=== PATIENT | male | born 2000 | race Caucasian/White ===

== ENCOUNTER 2024-09-23 11:51 | Outpatient (AMB) | payer OTHER, SELFPAY ==
[2024-09-23 12:05] VITALS: BP 112/62; PULSE 68; TEMP 36.7; O2SAT 99
--- NOTE | 2024-09-23 12:05 | AM.OFFWIN_ITS ---
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 He has h/o well controlled Asthma. [facility] Social History Patient Tobacco Use Status: Never used Tobacco Review of Systems Const All systems reviewed & are unremarkable except as noted in HPI and below Physical Exam Vital Signs: Last Vital Signs Temp 98.1 F 09/23/24 12:05 Pulse 68 09/23/24 12:05 BP 112/62 09/23/24 12:05 Pulse Ox 99 09/23/24 12:05 Const General: cooperative and no acute distress Nutritional Appearance: thin Orientation/consciousness: patient oriented x3 HEENT Head: Yes normocephalic Ears: external ears normal and TM's normal bilaterally General nose exam: Abnormal mucous membranes and turbinates present erythematous and Nasal discharge present Face and sinus: Yes sinuses nontender Mouth: tongue normal and moist mucous membranes Throat: Yes uvula midline Resp Effort & Inspection: normal respiratory effort, able to speak in complete sentences and Actively coughing Auscultation: no crackles, no rales, rhonchi and wheezes Cardio Heart sounds: S1 normal heart sound present and S2 normal heart sound present Neuro General: patient oriented x3 Office Procedures Nebulizer Treatment Nebulizer Treatment 16457-Cnzawwttz/MDI RX initial, or Nebulizer Subsequent Treatment Office Meds ipratropium 0.5 mg-albuterol 3 mg (2.5 mg base)/3 mL nebulization soln Performing Provider: Lisandra Feliz NP Performing Location: [facility] Administered by: Lisandra Feliz NP on 09/23/24 12:39 Dose Route Admin Location Dispensed Lot Number Expiration Date [facility] Die [employer]ger 3 mL inhalation 3 mL 06/08/25 [id number] MYLAN Assessment & Plan Assessment & Plan (1) Acute respiratory disease: Code(s): J06.9 - Acute upper respiratory infection, unspecified Plan: Ordered Duo Neb Tx Ordered SARs Ordered Abx and Prednisone. (2) Asthma exacerbation: Code(s): J45.901 - Unspecified asthma with (acute) exacerbation Qualifiers: Asthma persistence: persistent Asthma severity: moderate Qualified Code(s): J45.41 - Moderate persistent asthma with (acute) exacerbation Plan: Ordered Duo Neb Tx Ordered SARs Ordered Abx and Prednisone. Orders: Orders SARS-CoV2/FLU/RSV Today J06.9 - Acute upper respiratory infection, unspecified AMB Nebulizer Treatment Today J45.41 - Moderate persistent asthma with (acute) exacerbation Medications: New prednisone 50 mg PO DAILY 5 tabs 0RF J06.9 - Acute upper respiratory infection, unspecified, J45.41 - Moderate persistent asthma with (acute) ex acerbation albuterol sulfate 90 mcg/actuation 2 puffs inhalation Q4-6H PRN 6.7 grams 0RF shortness of breath or wheezing J06.9 - Acute upper respiratory infection, unspecified, J45.41 - Moderate persistent asthma with (acute) exacerbation fluticasone propion-salmeterol 115-21 mcg/actuation (Advair HFA) 2 puffs inhalation BID 12 grams 1RF J45.41 - Moderate persistent asthma with (acute) exacerbation albuterol sulfate 0.63 mg (3 mL) inhalation Q4-6H PRN 90 mL 0RF shortness of breath or wheezing J45.41 - Moderate persistent asthma with (acute) exacerbation doxycycline hyclate 100 mg PO BID 10 days 20 caps 0RF J06.9 - Acute upper respiratory infection, unspecified, J45.41 - Moderate persistent asthma with (acute) exacerbation Coding Level of Care Code Est Pt Level 4 (07270) Diagnoses Acute respiratory disease J06.9 Moderate persistent asthma with exacerbation J45.41 Asthma persistence: persistent Asthma severity: moderate CPT Codes Nebulizer Treatment - Nebulizer Treatment, initial or subsequent: 23871- Nebulizer/MDI RX initial, or Nebulizer Subsequent Treatment ([id number]) Time Spent (min) 20
== END 2024-09-23 13:10 | disposition home or self-care (01) ==
PROVIDERS: PCP Nurse Practitioner Family; Visit Provider Nurse Practitioner Family
DX: J06.9 Acute upper respiratory infection, unspecified (principal); J45.41 Moderate persistent asthma with (acute) exacerbation

== ENCOUNTER 2024-09-23 11:51 | Outpatient (REF) | payer OTHER, SELFPAY ==
[2024-09-23 15:30] LABS: Influenza A PCR NEGATIVE (Negative); Influenza B PCR NEGATIVE (Negative); Resp Syncy Virus RNA Qual PCR NEGATIVE (Negative); SARS COV2 PCR INHOUSE NEGATIVE (Negative)
== END 2024-09-23 11:52 | disposition home or self-care (01) ==
LOC: HO.LAB 11:51
PROVIDERS: PCP Nurse Practitioner Family; Visit Provider Nurse Practitioner Family
DX: J06.9 Acute upper respiratory infection, unspecified (principal); J45.41 Moderate persistent asthma with (acute) exacerbation
CPT/HCPCS: 0241U; 94640

== ENCOUNTER 2025-06-07 12:27 | Outpatient (AMB) | payer OTHER, SELFPAY ==
[2025-06-07 12:32] VITALS: BP 122/68; PULSE 64; RESP 16; TEMP 36.7; O2SAT 97; BMI 24.0
--- NOTE | 2025-06-07 12:32 | A.OFFPC_ITS ---
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 Allergies nut - unspecified Allergy (Intermediate, Verified 06/07/25 13:00) Angioedema amoxicillin Allergy (Mild, Verified 06/07/25 12:53) Rash Medication List - Last Reconciled 06/07/25 by Dlyan Cruz, CLOTH DES[employer]ING RANGE OPERATOR CHIEF- albuterol sulfate 90 mcg/actuation 2 puffs inhalation Q4-6H PRN albuterol sulfate 0.63 mg (3 mL) inhalation Q4-6H PRN fluticasone furoate-vilanterol 100-25 mcg/dose (Breo Ellipta) 1 inh inhalation DAILY risankizumab-rzaa (Skyrizi) mg subcut Tobacco use date assessed: 06/07/25 Dental Screening Dental Screen Date: 06/07/25 Did you have a dental visit in the last 12 months?: Yes Did you have a dental problem in the last 6 months where you did not have access to dental care?: No Was dental information given to patient?: Patient has dentist 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 He has a history of Crohn's Disease and is currently on Skyrizi, with regular follow-ups with a automatic steel tie adjuster. He undergoes stool studies and lab tests regularly due to his medication regimen. The patient also has a history of asthma, although he rarely uses his inhaler. He reports using it primarily during the winter or when he is ill. Health Maintenance Social History Review of Systems - Respiratory: Denies frequent use of in haler, uses it mainly during winter or illness -denies any CP, current abd pain, n/v, s i or hi, dizziness, fevers, and chills Physical Exam General: Cooperative, healthy appearing, comfortable, no acute distress and well developed Orientation: Patient oriented x3 Limitations: No limitations Head: Normal to inspection Ears: Hearing grossly normal bilaterally Nose: Normal external nose present Face and sinus: Normal facial exam Eyes: Appearance normal, both eyes and all related structures Neck: Normal visual inspection and Yes full ROM Respiratory: Lungs were clear, exam was benign Cardiovascular: Regular rate and rhythm. Normal S1 and S2 GI: Normal to inspection. Soft to palpation and nontender : testicles without masses/lesions and no hernias appreciated Skin: No rashes or lesions noted Neuro: Patient oriented x3 Extremities: Normal to inspection Discussion Notes labs encouraged [facility] Medical History Asthma Crohn's disease Surgical History No pertinent past surgical history Social History Housing: House Patient Tobacco Use Status: Never used Tobacco Second Hand Smoke Exposure: No service: No Questionnaire PHQ-9 Over the last 2 weeks, how often have you been bothered by any of the following problems? 1. Little interest or pleasure in doing things: not at all 2. Feeling down, depressed, or hopeless: not at all 3. Trouble falling or staying asleep, or sleeping too much: not at all 4. Feeling tired or having little energy: not at all 5. Poor appetite or overeating: not at all 6. Feeling bad about yourself - or that you are a failure or have let yourself or your family down: not at all 7. Trouble concentrating on things, such as reading the newspaper or watching television: not at all 8. Moving or speaking so slowly that other people could have noticed. Or the opposite - being so fidgety or restless that you have been moving around a lot more than usual: not at all 9. Thoughts that you would be better off or of hurting yourself in some way: not at all Total score: 0 Depression Screening Interpretation: Negative Depression Screening Done: Yes 62470 - PHQ-9 Billing: Yes Source: Developed by Drs. Martin Hyman, Olviia Kent, Jacob Hart and colleagues, with an educational karthik from [employer]. Thrive Questionnaire Date Thrive assessed: 06/07/25 I am a: Patient What is your living situation today?: I have a steady place to live Within the past 12 months, did the food you bought not last and you didn't have the money to get more?: Often true Within the past 12 months, did you worry whether your food would run out before you got money to buy more?: Never true Do you have trouble paying for medicines?: No Do you have trouble getting transportation to medical appointments?: No Do you have trouble paying your heating and electricity bill?: No Do you have trouble taking care of your child, family member or friend?: No Do you have trouble with day-to-day activities such as bathing, preparing meals, shopping, managing finances, etc.?: No Are you currently unemployed and looking for a job?: No Are you interested in more education?: No Please select the resources that you would like help with: None Currently or been in a relationship where the following occur: No concerns reported THRIVE Score: 1 AUDIT C Alcohol Use Questionnaire (AUDIT-C) 1. How often do you have a drink containing alcohol?: Monthly or less 2. How many drinks containing alcohol do you have on a typical day when you are drinking?: 1 or 2 3. How often do you have six or more drinks on one occasion?: Never Total Score: 1 Score Reviewed/Action Taken: Yes ROWENA-7 AMB Questionnaire ROWENA-7 Date ROWENA - 7 assessed: 06/07/25 Feeling nervous, anxious, or on edge: 0 = Not at all Not being able to stop or control worryin = Not at all Worrying too much about different things: 0 = Not at all Trouble relaxin = Not at all Being so restless that it is hard to sit still: 0 = Not at all Becoming easily annoyed or irritable: 0 = Not at all Feeling afraid as if something awful might happen: 0 = Not at all Total ROWENA-7 score (0-4 normal; 5-9 mild; 10-14 moderate; 15-21 severe): 0 Source: Developed by Drs. Martin Hyman, Olivia Kent, Jacob Hart and colleagues, with an educational karthik from [employer]. ROWENA-7 Assessment Billing ROWENA-7 Assessment Tool: ROWENA-7 Assessment 83047 Physical exam (Primary Care) Vital Signs: Last Vital Signs Temp 98.1 F 06/07/25 12:32 Pulse 64 06/07/25 12:32 Resp 16 06/07/25 12:32 BP 122/68 06/07/25 12:32 Pulse Ox 97 06/07/25 12:32 Oxygen Delivery Method Room Air 06/07/25 12:32 BMI result Body Mass Index 24.0 Tobacco/Smoking Status: Tobacco use Status Tobacco use date assessed 06/07/25 06/07/25 12:44 Patient Tobacco Use Status Never used Tobacco 06/07/25 12:37 PHQ-9: PHQ-9 Score PHQ-9: Total score 0 06/07/25 12:45 Depression Screening Interpretation: Negative Thrive Assessment: Date of Thrive Assessment Date Thrive assessed 06/07/25 06/07/25 12:44 Currently or been in a relationship where the following occur: No concerns repor rose Coding Level of Care Code New Pt Prev Care 18-39yr(91746 Diagnoses Physical exam Z00.00 Additional Codes ROWENA-7 Assessment Billing - ROWENA-7 Assessment Tool: ROWENA-7 Assessment 18587 ([id number]) PHQ-9 - 38286 - PHQ-9 Billing: Yes ([id number]) Assessment & Plan Assessment & Plan (1) Physical exam: Code(s): Z00.00 - Encounter for general adult medical examination without abnormal findings Category: Medical Plan . Orders: Orders TSH reflex Free T4 Today Z00.00 - Encounter for general adult medical examination without abnormal findings Complete Blood Count Auto Diff Today Z00.00 - Encounter for general adult medical examination without abnormal findings Comprehensive [place]. Panel Fast Today Z00.00 - Encounter for general adult medical examination without abnormal findings UA CC w/rflx Micro + Cult Today Z00.00 - Encounter for general adult medical examination without abnormal findings Lipid Panel Today Z00.00 - Encounter for general adult medical examination without abnormal findings Medications: New epinephrine (EpiPen) for 2 doses 0.3 mg (0.3 mL) IM Q10M PRN 2 ea 0RF anaphylaxis Discontinued prednisone Discontinued Reason: Doctor's Order 50 mg PO DAILY 5 tabs 0RF J06.9 - Acute upper respiratory infection, unspecified, J45.41 - Moderate persistent asthma with (acute) exacerbation doxycycline hyclate Discontinued Reason: Doctor's Order 100 mg PO BID 10 days 20 caps 0RF J06.9 - Acute upper respiratory infection, unspecified, J45.41 - Moderate persistent asthma with (acute) exacerbation
--- OUTSIDE RECORDS SUMMARY | 2025-06-07 12:46 | XMS_ITS | Encounter Summary ---
Author Organization [facility] Address [address] [place] [address] Phone Care Team Providers Care Field Scout Name Role Phone Edmond Harmon MD Primary Care Provider [phone] Encounter Details Date Type Department Care Team (Late st Contact Info) Description 06/16/2017 Conversion Encounter [facility] - [address], [address] [place] [address] Edmond Harmon MD [address] [place] [address] Social History Tobacco Use Types Packs/Day Years Used Date Smoking Tobacco: Never Assessed Sex and Gender Information Value Date Recorded Sex Assigned at Male 10/13/2024 5:15 PM EST Legal Sex Male 3:12 PM EST Gender Identity Male 10/13/2024 5:15 PM EST Sexual Orientation Straight 10/13/2024 5: 15 PM EST documented as of this encounter Plan of Treatment Not on file documented as of this encounter Visit Diagnoses Not on filedocumented in this encounter Care Teams Field Scout Relationship Specialty Start Date End Date Edmond Harmon MD [address] [place] [address] PCP - General 12/29/16 documented as of this encounter
== END 2025-06-07 13:07 | disposition home or self-care (01) ==
LOC: HO.HMCC 12:28
PROVIDERS: PCP Nurse Practitioner Family; Visit Provider Nurse Practitioner Family
DX: Z00.00 Encounter for general adult medical examination without abnormal findings (principal)

== ENCOUNTER → 2025-06-07 12:27 | Outpatient (BNVA) | payer OTHER, SELFPAY | PROVIDERS: PCP Nurse Practitioner Family; Visit Provider Nurse Practitioner Family | DX: Z00.00 Encounter for general adult medical examination without abnormal findings (principal); J06.9 Acute upper respiratory infection, unspecified | CPT/HCPCS: 96127 ==